=== PATIENT | male | born 1965 | race Caucasian/White ===

== ENCOUNTER 2022-03-01 11:29 | Emergency (ER) | payer BC ==
[2022-03-01 13:02] VITALS: BP 136/85; PULSE 58; RESP 18; TEMP 97.7
--- NOTE | 2022-03-01 13:56 | ED ---
General Adult HPI - General Chief complaint: Skin/Abscess/Foreign Body Stated complaint: post op, incision bleeding Time Seen by Provider: 03/01/22 13:14 Source: patient Mode of arrival: ambulatory Limitations: no limitations - History of Present Illness Initial comments: Patient is a 56-year-old male who presents for evaluation of bleed post-cosmetic surgery. Patient states he had a facial lift 6 days ago in [place]. Patient states he had several stitches on both sides of his face and scalp. Patient states he has been doing well since the surgery however today he felt blood rushing down his right neck. Patient has concern that a suture broke as he continued to bleed. States he called his cosmetic surgeon who told him to come into the office however patient does not want to drive to [place]. Patient states he has a follow up appointment with the cosmetic surgeon tomorrow. He denies pain or other concerns. - Related Data Allergies Allergy/AdvReac Type Severity Reaction Status Date / Time No Known Allergies Allergy Verified 03/01/22 13:02 Review of Systems ROS Statement: Those systems with pertinent positive or pertinent negative responses have been documented in the HPI. ROS Other: All systems not noted in ROS Statement are negative. Past Medical History History of Any Multi-Drug Resistant Organisms: None Reported Additional Past Surgical History / Comment(s): facial cosmetic surgery Past Psychological History: No Psychological Hx Reported Smoking Status: Never smoker Past Alcohol Use History: Occasional Past Drug Use History: None Reported General Exam Limitations: no limitations General appearance: alert, in no apparent distress Head exam: Present: normocephalic, other (Several sutures that begin just anterior to the ear and travel upward into the scalp bilaterally. No surrounding erythema, edema, or drainage. Hematoma appreciated in right upper cheek/temporal region.No active bleeding. ) Eye exam: Present: normal appearance, PERRL, EOMI. Absent: scleral icterus, conjunctival injection, periorbital swelling Respiratory exam: Present: normal lung sounds bilaterally. Absent: respiratory distress, wheezes, rales, rhonchi, stridor Cardiovascular Exam: Present: regular rate, normal rhythm, normal heart sounds. Absent: systolic murmur, diastolic murmur, rubs, gallop, clicks Neurological exam: Present: alert, oriented X3, CN II-XII intact Psychiatric exam: Present: normal affect, normal mood Skin exam: Present: warm, dry, intact, normal color. Absent: rash Course Vital Signs 03/01/22 12:56 Temperature 97.7 F Pulse Rate 58 L Respiratory 18 Rate Blood Pressure 136/85 O2 Sat by Pulse 99 Oximetry Medical Decision Making - Medical Decision Making This is a 56-year-old male who presents with postop bleeding after facelift 6 days ago. Thorough history and examination were performed. There were several sutures that begin just anterior to the ear and travel upward into the scalp bilaterally. No surrounding erythema, edema, or drainage. Hematoma appreciated in right upper cheek/temporal region with no active bleeding. With no active bleeding patient can go home with strict return parameters. He is to follow-up with his cosmetic surgeon tomorrow. Hematoma education provided. Patient verbalizes understanding and is agreeable to this plan. Dr. Mo is my attending. Disposition Clinical Impression: Hematoma, History of facial surgery Disposition: HOME SELF-CARE Condition: Good Instructions (If sedation given, give patient instructions): Hematoma (ED) Additional Instructions: Applied cold compress to swelling to his pain and symptoms. Take Tylenol for pain. Follow-up with your cosmetic surgeon at his scheduled appointment tomorrow. Return to the emergency department if you experience new, concerning, or worsening symptoms Is patient prescribed a controlled substance at d/c from ED?: No Referrals: Servando Gaming DO [Primary Care Provider] - 1-2 days Time of Disposition: 13:56
== END 2022-03-01 14:16 | disposition home or self-care (01) ==
LOC: EC 11:29
DX: L76.31 Postprocedural hematoma of skin and subcutaneous tissue following a dermatologic procedure (principal)
CPT/HCPCS: 99283